=== PATIENT | male | born 1980 | race Caucasian/White ===

== ENCOUNTER 2024-06-13 12:14 | Emergency (ER) | payer OTHER ==
[~2024-06-13] VITALS: Ht 177.8 cm; Wt 97.1 kg
[2024-06-13 12:42] VITALS: BP 166/104; PULSE 78
[2024-06-13] MEDS: LIDOCAINE W/ EPINEPHRINE 1% 20ML VIAL ID ONE (12:53)
[2024-06-13] MEDS: TETANUS-DIPTH-ACEL PERTUSSIS 0.5ML SYR Tdap IM ONE (12:55)
--- NOTE | 2024-06-13 13:14 | ED.PDOC ---
HPI Comments Pleasant 43-year-old gentleman presents for an avulsion to the left hand located at the distal PIP Onset occurred while using a skill saw Reports he is unable to obtain hemostasis at this time. No other complaint or concern Denies numbness tingling to the affected extremity Last tetanus shot unknown Chief Complaint: Laceration Time Seen by MD: 12:38 Reviewed Notes: Nurses Notes, Medications, Allergies Information Source: Patient Complexity: Simple Laceration Location: Digit #3 Mechanism: Work Related Laceration Length (cm): 2 Skin Type: Avulsion Depth of Injury: Skin Tendon Injury: 0% Capillary Refill: < 3 seconds Tender: Mild Discharge: None Erythema: None Past Medical History PAST MEDICAL HISTORY: Denies Surgical History: Denies all surgeries All Other Systems: Reviewed and Negative (Per HPI) Physical Exam General Appearance: No Apparent Distress, Normal HEENT: Normal ENT Inspection, Pharynx Normal, TMs Normal Neck: Full Range of Motion, Non-Tender, Normal, Normal Inspection Respiratory: Chest Non-Tender, Lungs Clear, No Accessory Muscle Use, No Respiratory Distress, Normal Breath Sounds Cardiovascular: No Edema, No JVD, No Murmur, No Gallop, Normal Peripheral Pulses, Regular Rate/Rhythm Breast Exam: Deferred Gastrointestinal: No Organomegaly, Non Tender, No Pulsatile Mass, Normal Bowel Sounds, Soft Genitalia: Deferred Pelvic: Deferred Rectal: Deferred Extremities: No calf tenderness, Normal capillary refill, Normal inspection, Normal range of motion, Non-tender, No pedal edema Musculoskeletal : Apperance: Normal Neurologic: Alert, box puller II-XII nml as Tested, No Motor Deficits, Normal Affect, Normal Mood, No Sensory Deficits Cerebellar Function: Normal Reflexes: Normal Skin: Dry, Normal Color, Warm Lymphatic: No Adenopathy Was a procedure done? Was a procedure done?: Yes Sedation Sedation?: No Laceration Repair : Location Left finger Length 2 Anesthetic: Lidocaine Laceration Repair Prep: Saline, Betadine Laceration Repair Wound Comple: epidermis/dermis repair Laceration Repair: Dermabond Informed consent obtained: Yes Risks, benefits, and alternati: Yes Differential diagnosis Generic Laceration: Tendon Injury, Laceration, Avulsion X-Ray, Labs, Meds, VS Current Medications Medications (Trade) Dose Ordered Sig/Gregorio Route Start Time Stop Time Status Last Admin Diphtheria/ Tetanus/Acell Pertussis (Boostrix T-Dap) 0.5 ml ONCE ONCE IM 11/13/24 12:45 06/13/24 12:46 DC 06/13/24 12:55 X-Ray, Labs, Meds, VS Comment The skin surrounding the laceration was scrubbed with Betadine soaked sterile gauze The laceration was prepped in sterile fashion with sterile drapes On examination under direct light, there was no foreign body seen The laceration was repaired with dermabond * Tetanus updated Education and follow-up instructions provided Wound check in 2 days Return sooner for signs of infection such as fevers, increased pain, redness, green, yellow discharge, or any concerns Keep wound dry for 24 to 48 hours; dry dressing may be changed Protect from sunlight and keep area clean and dry. Use soap and water if it gets dirty High risk of possible scarring and education provided on ways to minimize scarring after wound heals Also provided education on possible complications post procedure including wound dehiscence, infection, etc. Time of 1ST Reevaluation: 13:12 Reevaluation 1ST: Improved Patient Education/Counseling: Diagnosis, Treatment Family Education/Counseling: Diagnosis, Treatment Departure 1 Departure Time of Disposition: 13:12 Impression: Primary Impression: Avulsion of finger tip Qualified Codes: S61.209A - Unspecified open wound of unspecified finger without damage to nail, initial encounter Disposition: HOME / SELF CARE / HOMELESS Condition: Stable Critical Care Note Critical Care Time?: No Stability Stability form required: No Heart Score Heart Score: Heart Score Response (Comments) Value History N/A 0 EKG N/A 0 Age N/A 0 Risk Factors N/A 0 Troponin N/A 0 Total 0 SONG CHAIREZ NP Jun 13, 2024 13:14
[2024-06-13 16:31] VITALS: RESP 18; O2SAT 95
== END 2024-06-13 13:22 | disposition home or self-care (01) ==
LOC: ER 12:14
DX: S61.203A Unspecified open wound of left middle finger without damage to nail, initial encounter (principal); W27.0XXA Contact with workbench tool, initial encounter; Y93.89 Activity, other specified; Y92.89 Other specified places as the place of occurrence of the external cause; Y99.8 Other external cause status
CPT/HCPCS: 12001; 90471; 90715